=== PATIENT | male | born 1975 | race Native Hawaiian/Other Pacific Islander ===

== ENCOUNTER 2016-02-21 19:22 | Emergency (ER) | payer SELFPAY ==
[2016-02-21 19:42] VITALS: BP 122/78
--- NOTE | 2016-02-21 20:08 | Emergency Department Report ---
HPI - General Chief Complaint: Upper Respiratory Infection Time Seen by Provider: 02/21/16 20:05 ED Past Medical Hx - Past Medical History Previous Medical History?: Yes Hx GERD: Yes Additional medical history: Pneumonia - Surgical History Past Surgical History?: Yes Hx Appendectomy: Yes - Social History Smoking Status: Never Smoker Substance Use Type: None - Medications Home Medications: Home Medications Medication Instructions Recorded Confirmed Last Taken Type Omeprazole [PriLOSEC] 20 mg PO QDAY 04/25/15 04/25/15 Unknown History Famotidine [Pepcid] 20 mg PO BID #60 tablet 04/27/15 Unknown Rx Levofloxacin [Levaquin] 750 mg PO QDAY #5 tablet 04/27/15 Unknown Rx ED Review of Systems ROS: Stated complaint: COUGH/EAR PAIN Other details as noted in HPI Physical Exam - Physical Exam Vital Signs: Vital Signs 02/21/16 19:37 Temperature 98.6 F Pulse Rate 77 Respiratory 18 Rate Blood Pressure 122/78 O2 Sat by Pulse 100 Oximetry ED Course Vital Signs 02/21/16 19:37 Temperature 98.6 F Pulse Rate 77 Respiratory 18 Rate Blood Pressure 122/78 O2 Sat by Pulse 100 Oximetry Critical care attestation.: If time is entered above; I have spent that time in minutes in the direct care of this critically ill patient, excluding procedure time. ED Disposition Condition: Stable
[2016-02-21] MEDS ORDERED: DUONEB 0.5 MG-3 MG/3 ML SOLN IH ONE (20:27)
[2016-02-21 20:56] LABS: Basophils % (Auto) 2.2 % (0.0-1.8); Eosinophils % (Auto) 1.9 % (0.0-4.3); Mean Corpuscular HGB Conc 36 % (32-34); Mean Corpuscular Hemoglobin 32 pg (28-32); Mean Corpuscular Volume 88 fl (84-94); Platelet Count 227 K/mm3 (140-440); Red Blood Count 4.53 M/mm3 (3.65-5.03); Red Cell Distribution Width 13.8 % (13.2-15.2); White Blood Count 6.9 K/mm3 (4.5-11.0)
[2016-02-21 21:06] LABS: Hematocrit 39.8 % (35.5-45.6); Hemoglobin 14.4 gm/dl (11.8-15.2); INR 1.02 (0.87-1.13)
--- NOTE | 2016-02-21 21:23 | Emergency Department Report ---
HPI - General Chief Complaint: Upper Respiratory Infection Time Seen by Provider: 02/21/16 20:05 - HPI HPI: 40-year-old male past medical history GERD, history of pneumonia, presents with 1 month of cough, intermittent chest pain, chest pressure. Chest pain typically occurs after coughing fits. States he went to his primary medical doctor and was treated for community-acquired pneumonia, has bottles for promethazine, azithromycin and Motrin. He used medicines approximately one week ago with minimal to no relief of symptoms. Patient states that he had been having intermittent fevers subjective. Patient denies any smoking or drug use, occasional alcohol use. Lives any hemoptysis, no recent surgeries, denies any leg swelling. Denies any history of PE or malignancy. ED Past Medical Hx - Past Medical History Previous Medical History?: Yes Hx GERD: Yes Additional medical history: Pneumonia - Surgical History Past Surgical History?: Yes Hx Appendectomy: Yes - Social History Smoking Status: Never Smoker Substance Use Type: None - Medications Home Medications: Home Medications Medication Instructions Recorded Confirmed Last Taken Type Omeprazole [PriLOSEC] 20 mg PO QDAY 04/25/15 04/25/15 Unknown History Famotidine [Pepcid] 20 mg PO BID #60 tablet 04/27/15 Unknown Rx Levofloxacin [Levaquin] 750 mg PO QDAY #5 tablet 04/27/15 Unknown Rx ALBUTEROL Inhaler [ProAir HFA 1 puff IH Q4H PRN #1 inha 02/21/16 Unknown Rx Inhaler] Amoxicillin/K Clav Tab [Augmentin 1 tab PO Q12HR #20 tab 02/21/16 Unknown Rx 875 mg] Famotidine [Pepcid] 20 mg PO BID #20 tablet 02/21/16 Unknown Rx Loratadine [Claritin] 10 mg PO DAILY PRN #10 tablet 02/21/16 Unknown Rx Naproxen [Naproxen TAB] 250 mg PO BID PRN #20 tablet 02/21/16 Unknown Rx ED Review of Systems ROS: Stated complaint: COUGH/EAR PAIN Other details as noted in HPI Physical Exam - Physical Exam Vital Signs: Vital Signs 02/21/16 02/21/16 02/21/16 19:37 20:38 20:53 Temperature 98.6 F Pulse Rate 77 Pulse Rate [ 84 85 Posterior Bilateral Throughout] Respiratory 18 Rate Respiratory 14 16 Rate [Posterior Bilateral Throughout] Blood Pressure 122/78 O2 Sat by Pulse 100 Oximetry General: General: Well appearing, well nourished, in no distress. Oriented x 3, normal mood and affect .Ambulating without difficulty. Head: Normocephalic, atraumatic, no visible or palpable masses, depressions, or scaring. Eyes: Visual acuity intact, conjunctiva clear, sclera non-icteric, EOM intact, PERRLA Ears: EACs clear, TMs translucent & mobile, ossicles nl appearance, hearing intact. Nose: No external lesions, mucosa non-inflamed, septum and turbinates normal Mouth: Mucous membranes moist, no mucosal lesions. Pharynx: Mucosa non-inflamed, no tonsillar hypertrophy or exudate Neck: Supple, without lesions, bruits, or adenopathy, thyroid non-enlarged and non-tender Heart: No cardiomegaly or thrills; regular rate and rhythm, no murmur or gallop Lungs: Clear to auscultation bilaterally no wheezes no rhonchi Abdomen: Bowel sounds normal, no tenderness, organomegaly, masses, or hernia Back: Spine normal without deformity or tenderness, no CVA tenderness Musculoskeletal: Normal gait and station. No misalignment, asymmetry, crepitation, defects, tenderness, masses, effusions, decreased range of motion, instability, atrophy or abnormal strength or tone in the head, neck, spine, ribs , pelvis or extremities. Neurologic: CN 2-12 normal. Sensation to pain, touch, and proprioception normal. DTRs normal in upper and lower extremities. No pathologic reflexes. Psychiatric: Oriented X3, intact recent and remote memory, judgment and insight , normal mood and affect. ED Course Vital Signs 02/21/16 02/21/16 02/21/16 19:37 20:38 20:53 Temperature 98.6 F Pulse Rate 77 Pulse Rate [ 84 85 Posterior Bilateral Throughout] Respiratory 18 Rate Respiratory 14 16 Rate [Posterior Bilateral Throughout] Blood Pressure 122/78 O2 Sat by Pulse 100 Oximetry ED Medical Decision Making - Lab Data Result diagrams: 02/21/16 20:45 02/21/16 20:45 - Medical Decision Making A/P: Bronchitis, persistent cough, chest pain 1-case discussed with Dr. Torres 2- patient states that he feels that his breathing has improved and has less chest congestion after 1 DuoNeb treatment. As patient complained of one month of intermittent chest pain on daily basis with associated cough obtained chest x -ray and basic labs, troponin, CK-MB, CMP area all within normal limits. EKG sinus rate of 71. PERC Rule negai 3-Augmentin 10 day course, Claritin, pro-air inhaler, naproxen, Pepcid. Patient already has Bromfed liquid prescription 4- I advised patient to follow up with his primary medical doctor and provided patient with cardiology information/referral 5- I advised patient to return to the ED if he experienced severe chest pain with associated nausea vomiting diaphoresis. PERC Rule: Rules out PE if no criteria are present and pre-test probability is <15%. Age 51NO HR 100NO O2 Sat on Room Air < 95%NO Prior History of Venous ThromboembolismNO Trauma or Surgery within 4 weeksNO HemoptysisNO Exogenous EstrogenNO Unilateral Leg SwellingNO No need for further workup, as <2% chance of PE. If no criteria are positive and clinician's pre-test probability is <15%, PERC Rule criteria are satisfied. Critical care attestation.: If time is entered above; I have spent that time in minutes in the direct care of this critically ill patient, excluding procedure time. ED Disposition Clinical Impression: Cough Chest pain Qualifiers: Chest pain type: unspecified Qualified Code(s): R07.9 - Chest pain, unspecified Disposition: DISCHARGED TO HOME OR SELFCARE Is pt being admited?: No Does the pt Need Aspirin: No Condition: Stable Instructions: Chest Pain (ED), Chronic Cough (ED), Cold Symptoms (ED) Prescriptions: Amoxicillin/K Clav Tab [Augmentin 875 mg] 1 tab PO Q12HR #20 tab Loratadine [Claritin] 10 mg PO DAILY PRN #10 tablet PRN Reason: Cough Naproxen [Naproxen TAB] 250 mg PO BID PRN #20 tablet PRN Reason: Cough Famotidine [Pepcid] 20 mg PO BID #20 tablet ALBUTEROL Inhaler [ProAir HFA Inhaler] 1 puff IH Q4H PRN #1 inha PRN Reason: Shortness Of Breath Referrals: MICHELLE DE LA TORRE MD [Primary Care Provider] - 3-5 Days [facility]– [place] [Outside] - 3-5 Days CAREY GOMEZ MD [Staff Physician] - 3-5 Days Time of Disposition: 21:53 Print Language: SOUTH AFR[place]
[2016-02-21 21:24] LABS: Alanine Aminotransferase 48 units/L (7-56); Albumin/Globulin Ratio 1.3 %; Alkaline Phosphatase 130 units/L (35-129); BUN/Creatinine Ratio 17.14; Bilirubin,Total 0.3 mg/dL (0.1-1.2); Blood Urea Nitrogen 12 mg/dL (9-20); Calcium 8.5 mg/dL (8.4-10.2); Carbon Dioxide 24 mmol/L (22-30); Chloride 105.9 mmol/L (98-107); Creatine Kinase 102 units/L (55-170); Glucose 113 mg/dL (75-100); Potassium 3.4 mmol/L (3.6-5.0); Sodium 144 mmol/L (137-145); Total Protein 7.2 g/dL (6.3-8.2)
[2016-02-21 21:25] LABS: Anion Gap 18 mmol/L
--- NOTE | 2016-02-21 21:38 | XRay Report ---
FINAL REPORT PROCEDURE: XR CHEST ROUTINE 2V TECHNIQUE: PA and lateral chest radiographs were obtained. CPT 92355 HISTORY: chest pain COMPARISON: 04/24/2015 FINDINGS: Heart: Normal. Mediastinum/Vessels: Normal. Lungs/Pleural space: Normal. Bony thorax: No acute osseous abnormality. Other: IMPRESSION: Normal examination.
== END 2016-02-21 22:05 | disposition home or self-care (01) ==
LOC: ED 19:22
DX: R07.89 Other chest pain (principal); R05 Cough; K21.9 Gastro-esophageal reflux disease without esophagitis; Z90.49 Acquired absence of other specified parts of digestive tract
CPT/HCPCS: 36415; 71020; 80053; 82550; 82553; 82805; 84484; 85025; 85610; 93005; 93010; 94640